=== PATIENT | male | born 1945 | race Caucasian/White ===

== ENCOUNTER 2017-11-29 15:29 | Outpatient (CLI) | payer MEDICARE | END 2017-11-29 15:30 | disposition home or self-care (01) | LOC: MADEKG 15:29 | PROVIDERS: ATTEND Family Medicine | DX: I25.810 Atherosclerosis of coronary artery bypass graft(s) without angina pectoris (principal); R00.1 Bradycardia, unspecified | CPT/HCPCS: 93005; 93010 ==

== ENCOUNTER 2017-12-22 11:00 | Outpatient (CLI) | payer BC, MEDICARE ==
[2017-12-22 11:19] LABS: #Basophils 0.1 thou/uL (0.0-0.2); #Eosinphils 0.3 thou/uL (0.0-0.7); #Monocytes 0.9 thou/uL (0.11-0.59); #Neutrophils 6.1 thou/uL (1.40-6.50); %Basophils 0.9 % (0.0-1.0); %Eosinophils 3.6 % (0.0-10.0); %Lymphocytes 11.3 % (21.0-51.0); %Monocytes 11.1 % (0.0-10.0); %Neutrophils 73.1 % (42.0-75.0); Hemoglobin 11.9 g/dL (14.0-18.0); Mean Corpuscular HGB CONC 32.5 g/dL (32.0-36.0); Mean Corpuscular Volume 98.3 fL (78.0-98.0); Mean Platelet Volume 8.2 fL (7.4-10.4); Platelet Count 204 thou/uL (130-400); RBC Distribution Width 14.7 % (11.5-14.5); Red Blood Cell (RBC) Count 3.72 mill/uL (4.70-6.10); White Blood Cell (WBC) Count 8.4 thou/uL (4.8-10.8)
[2017-12-22 11:27] LABS: INR-International Normal Ratio 1.2; Prothrombin Time 15.2 SEC (12.0-14.7)
[2017-12-22 11:38] LABS: ALT (SGPT) Less than 7 U/L (8-55); AST (SGOT) 9 U/L (5-34); Albumin 3.7 g/dL (3.4-4.8); Alkaline Phosphatase 80 U/L (40-150); Anion Gap 18 mmol/L (10-20); BUN (Urea Nitrogen) 25 mg/dL (8.4-25.7); Bilirubin, Total 0.4 mg/dL (0.2-1.2); Calc. Creatinine Clearance 0 mL/min (70-130); Carbon Dioxide 24 mmol/L (23-31); Cardiac Risk 3.9 (Less than 4.5); Chloride 102 mmol/L (98-107); Cholesterol 104 mg/dl (< 200 Desired); Estimated GFR-MDRD 11; Globulin 4.3 g/dL (2.4-3.5); Glucose 275 mg/dL (83-110); HDL Cholesterol 27 mg/dL (>60 Neg Risk); LDL Cholesterol, Calculated 58 mg/dL; Potassium 4.8 mmol/L (3.5-5.1); Sodium 139 mmol/L (136-145); Triglycerides 96 mg/dL (Less than 150)
== END 2017-12-22 11:01 | disposition home or self-care (01) ==
LOC: MADLAB 11:00
PROVIDERS: ATTEND Internal Medicine Cardiovascular Disease
DX: I25.10 Atherosclerotic heart disease of native coronary artery without angina pectoris (principal); I25.5 Ischemic cardiomyopathy; I49.3 Ventricular premature depolarization
CPT/HCPCS: 36415; 80053; 80061; 85025; 85610

== ENCOUNTER 2018-01-29 13:33 | Outpatient (CLI) | payer MEDICARE ==
[2018-01-29 15:11] LABS: Anion Gap 19 mmol/L (10-20); BUN (Urea Nitrogen) 50 mg/dL (8.4-25.7); Calc. Creatinine Clearance 0 mL/min (70-130); Calcium 9.1 mg/dL (7.8-10.44); Carbon Dioxide 22 mmol/L (23-31); Chloride 103 mmol/L (98-107); Estimated GFR-MDRD 8; Glucose 186 mg/dL (83-110); Potassium 5.4 mmol/L (3.5-5.1); Sodium 139 mmol/L (136-145)
--- NOTE | 2018-01-29 15:18 | RAD ---
TWO VIEWS CHEST: Comparison: None. History: Pneumonia. FINDINGS: Two views of the chest shows normal sized cardiomediastinal silhouette. The patient is status post st ernotomy. There is a small right pleural effusion with adjacent atelectasis. A small left pleural eff usion may also be present. Increased interstitial markings are present. IMPRESSION: Bilateral pleural effusions. POS: [facility]
== END 2018-01-29 13:34 | disposition home or self-care (01) ==
LOC: MADRAD 13:33
PROVIDERS: ATTEND Family Medicine
DX: J18.9 Pneumonia, unspecified organism (principal); J90 Pleural effusion, not elsewhere classified
CPT/HCPCS: 36415; 71046; 80048

== ENCOUNTER 2018-06-07 10:26 | Outpatient (CLI) | payer MEDICARE ==
--- NOTE | 2018-06-07 10:56 | RAD ---
XR Chest Pa Lat STANDARD HISTORY: Acute bronchitis COMPARISON: 01/29/2018 FINDINGS: There are changes of median sternotomy. The heart size is stable. Right pleural-parenchymal changes are again seen. A small left pleural effusion are present. There is mild prominence of the pulmonary vascularity.
== END 2018-06-07 10:27 | disposition home or self-care (01) ==
LOC: MADRAD 10:26
PROVIDERS: ATTEND Family Medicine
DX: J20.9 Acute bronchitis, unspecified (principal)
CPT/HCPCS: 71046